=== PATIENT | male | born 1945 | race African-American/Black ===

== ENCOUNTER 2021-01-24 02:11 | Emergency (ER) | payer MEDICARE, OTHER, MEDICAID | END 2021-01-24 02:58 | LOC: ERS 02:11 | DX: Z00.00 Encounter for general adult medical examination without abnormal findings (principal); I10 Essential (primary) hypertension; E78.5 Hyperlipidemia, unspecified; E78.00 Pure hypercholesterolemia, unspecified; F17.210 Nicotine dependence, cigarettes, uncomplicated | CPT/HCPCS: 36416; 99283 ==

== ENCOUNTER 2025-03-04 19:25 | Emergency (ER) | payer MEDICAID, MEDICARE | END 2025-03-04 22:46 | disposition home or self-care (01) | LOC: ERS 19:25 | DX: M16.11 Unilateral primary osteoarthritis, right hip (principal); F17.210 Nicotine dependence, cigarettes, uncomplicated; W19.XXXA Unspecified fall, initial encounter; G89.29 Other chronic pain; M54.9 Dorsalgia, unspecified; I10 Essential (primary) hypertension; Z95.5 Presence of coronary angioplasty implant and graft | CPT/HCPCS: 36416; 99283 ==